=== PATIENT | male | born 1955 | race African-American/Black ===

== ENCOUNTER → 2019-08-12 | Day surgery (SDC) | payer OTHER ==
[~2019-08-12] MED LIST: GABA300C18 PO; HYDROmorphone 2 MG/ML VIAL IV PRN; IV RINGERS,LACTATED 1000ML 1,000 ML IV SCH; LIDOCAINE 1% PF 2 ML VIAL. ID PRN; LIDOCAINE 2% PF 5 ML VIAL. ONE; MORPHINE SULFATE 2 MG/ML VIAL. IV PRN; OMEP20CA16 PO; ONDANSETRON PF 4 MG/2 ML VIAL. IV PRN; PROCHLORPERAZINE 10 MG/2 ML VIAL. IV PRN; PROPOFOL 40 ML IV ONE; fentaNYL PF VIAL 100 MCG/2 ML VIAL IV PRN
[2019-08-12 13:00] VITALS: BP 101/57
--- NOTE | 2019-08-13 17:06 | PATHOLOGY ---
[facility] Accession Number: [id number] . 01 Material submitted: . PART A: duodenum - DUODENAL BIOPSIES PART B: colon - RANDOM COLON BIOPSIES PART C: rectum - RECTAL POLYP BIOPSY . 01 Clinical history: . Weight loss; diarrhea . 02 Diagnosis: A. Duodenal biopsies: - Focal mild nonspecific duodenitis with foveolar metaplasia. . B. Colonic mucosa, random colon biopsies: - No significant pathologic abnormalities. - Small incidental hyperplastic polyp. . C. Colorectal biopsy, recal polyp: - Hyperplastic polyp. (JPM:sim 08/13/2019) S 08/13/2019 1043 Local . 02 Comment: Sections of the duodenal biopsy reveal segments of duodenal mucosa showing focal mild chronic inflammation and foveolar metaplasia. Where best oriented, mucosal villi show no sprue-like changes or significant inflammatory changes. . Sections of the random colon biopsy reveal multiple segments of colonic mucosa. There is a small incidental hyperplastic polyp. There is no evidence of a chronic destructive colitis, lymphocytic colitis, or collagenous colitis. . Sections of the rectal biopsy reveal a hyperplastic polyp. There are no adenomatous changes or evidence of malignancy. (JPM:sim; 08/13/2019) . 02 Electronically signed: . Mc Gonsalves MD, Pathologist NPI- [id number] . 01 Gross description: . A. The specimen is received in formalin, labeled "Juan Ruiz, duodenal biopsies". Received are four segments of pale cassidy soft tissue ranging in size from 0.1 to 0.4 cm in maximum dimensions. The specimen is submitted entirely in cassette A1. . B. The specimen is received in formalin, labeled "Juan Ruiz, random colon biopsies". Received are multiple (greater than 10) segments of pale cassidy soft tissue ranging in size from 0.2 to 0.4 cm in maximum dimensions. The specimen is submitted entirely in cassette B1. . C. The specimen is received in formalin, labeled "Juan Ruiz, rectal polyp". Received is a segment of pale cassidy soft tissue measuring 0.3 cm in maximum dimensions. The specimen is submitted entirely in cassette C1. (CAA; 08/12/2019) QAC/QAC 08/12/2019 1938 Local . 02 Pathologist provided ICD-10: K29.80, K63.5, K62.1 . 02 CPT . 573200, [id number], [id number] Specimen Comment: A courtesy copy of this report has been sent to [phone] Specimen Comment: Report sent to Performed at: [facility] [address], [place] [id number] MD Kwasi Mccoy MD Phone: [phone] Performed at: 02 [facility] [address], [place] [id number] MD cM Gonsalves MD Phone: [phone]
== END | disposition home or self-care (01) ==
LOC: ENDOS 11:09
PROVIDERS: ATTEND Internal Medicine Gastroenterology
DX: R19.7 Diarrhea, unspecified (principal); K63.5 Polyp of colon; K29.80 Duodenitis without bleeding; K62.1 Rectal polyp; F15.90 Other stimulant use, unspecified, uncomplicated; F17.210 Nicotine dependence, cigarettes, uncomplicated; Z72.89 Other problems related to lifestyle
CPT/HCPCS: 43239; 45380; 88305; J2001; J2704; J3490